=== PATIENT | male | born 1965 | race American Indian/Alaskan Native ===

== ENCOUNTER 2019-03-12 13:44 | Emergency (ER) | payer MEDICARE ==
--- NOTE | 2019-03-12 14:31 | Event Note ---
ED Screening Note Date of service: 03/12/19 Time: 14:28 ED Screening Note: This is a 53 y.o. M. that presents to the ER for medical clearance to return to [place]. Patient reports elevated blood pressure after they changed is blood pressure medication. Denies chest pain, palpitations, visual changes, or headache. PMH HTN, DM2, sleep apnea, COPD, and asthma This initial assessment/diagnostic orders/clinical plan/treatment(s) is/are subject to change based on patients health status, clinical progression and re- assessment by fellow clinical providers in the ED. Further treatment and workup at subsequent clinical providers discretion. Patient/guardian urged not to elope from the ED as their condition may be serious if not clinically assessed and managed. Initial orders include:
[2019-03-12] MEDS ORDERED: METOPROLOL TARTRATE 50 MG TAB PO ONE (14:50)
--- NOTE | 2019-03-12 14:52 | Emergency Department Report ---
ED Recheck HPI - General Chief Complaint: Medical Clearance Stated Complaint: HBP/MEDICAL CLEARANCE Time Seen by Provider: 03/12/19 14:28 Source: patient Mode of arrival: Ambulatory Limitations: No Limitations - History of Present Illness Initial Comments: 53 YO COMES TO ER FROM [facility]. THEY SENT HIM BECAUSE HIS BP WAS INC. PT STATES ON ADMIT TO [facility] THEY DEC HIS METOP DOSE- CUT IT IN HALF. THEN TODAY HE HAD INC IN BP WITH NO CP NO SOB AND NO HEADACHE. THEY SENT HIM FOR MED CLEARANCE. MD Complaint: other Symptoms Since Prior Visit: no new symptoms Associated Symptoms: none - Related Data Previous Rx's Medication Instructions Recorded Last Taken Type Metoprolol [Lopressor TAB] 25 mg PO BID #60 tablet 03/12/19 Unknown Rx Allergies Allergy/AdvReac Type Severity Reaction Status Date / Time No Known Allergies Allergy Verified 03/12/19 14:27 ED Review of Systems ROS: Stated complaint: HBP/MEDICAL CLEARANCE Other details as noted in HPI Comment: All other systems reviewed and negative ED Past Medical Hx - Past Medical History Previous Medical History?: Yes Hx Hypertension: Yes - Surgical History Past Surgical History?: Yes Additional Surgical History: "liver operation." - Family History Family history: no significant - Social History Smoking Status: Never Smoker Substance Use Type: None - Medications Home Medications: Home Medications Medication Instructions Recorded Confirmed Last Taken Type Metoprolol [Lopressor TAB] 25 mg PO BID #60 tablet 03/12/19 Unknown Rx ED Physical Exam - General Limitations: No Limitations General appearance: alert - Head Head exam: Present: normocephalic - Eye Eye exam: Present: normal appearance, PERRL - ENT ENT exam: Present: mucous membranes moist - Neck Neck exam: Present: normal inspection, full ROM - Respiratory Respiratory exam: Present: normal lung sounds bilaterally - Cardiovascular Cardiovascular Exam: Present: regular rate - GI/Abdominal GI/Abdominal exam: Present: soft, normal bowel sounds - Rectal Rectal exam: Present: deferred - Extremities Exam Extremities exam: Present: normal inspection, full ROM - Back Exam Back exam: Present: normal inspection, full ROM - Neurological Exam Neurological exam: Present: alert, oriented X3, CN II-XII intact, normal gait - Psychiatric Psychiatric exam: Present: normal affect, normal mood - Skin Skin exam: Present: warm, dry, intact ED Course Vital Signs 03/12/19 03/12/19 14:28 15:20 Temperature 98.3 F Pulse Rate 57 L 65 Respiratory 16 Rate Blood Pressure 147/83 Blood Pressure 177/95 [Left] O2 Sat by Pulse 97 Oximetry ED Recheck MDM - Core Measures Measure Exclusions: not indicated - Medical Decision Making BP NORMAL IN ER PT ADVISED TO INC HIS METOP BACK TO THE DOSE THAT CONTROLLED HIS BP METOP 50- BUT TO TAKE 25 IN AM AND 25 IN PM TO AVOID BRADYCARDIA PT MEDICALLY CLEARED FOR PSYCH CARE AT [facility]. Vital Signs (72 hours) 03/12/19 03/12/19 14:28 15:20 Temperature 98.3 F Pulse Rate 57 L 65 Respiratory 16 Rate Blood Pressure 147/83 Blood Pressure 177/95 [Left] O2 Sat by Pulse 97 Oximetry Critical care attestation.: If time is entered above; I have spent that time in minutes in the direct care of this critically ill patient, excluding procedure time. ED Disposition Clinical Impression: HTN (hypertension), Medical clearance for psychiatric admission Disposition: TO HOME OR SELFCARE Is pt being admited?: No Does the pt Need Aspirin: No Condition: Stable Instructions: Hypertension (ED) Additional Instructions: increase metoprolol back to 25 mg BID hold if hr less than 60 pt has no HTN; unless he is symptomatic he should follow up with PCP Prescriptions: Metoprolol [Lopressor TAB] 25 mg PO BID #60 tablet Referrals: PRIMARY CARE, [Primary Care Provider] - 3-5 Days ROBIN MCCLOUD MD [Staff Physician] - 3-5 Days Time of Disposition: 15:19
[2019-03-12] MEDS ORDERED: cloNIDine 0.1 MG TAB PO ONE (14:53)
[2019-03-12 15:27] VITALS: BP 147/83
== END 2019-03-12 17:16 | disposition home or self-care (01) ==
LOC: ED 13:44
DX: I10 Essential (primary) hypertension (principal); Z79.899 Other long term (current) drug therapy